=== PATIENT | male | born 1990 | race Caucasian/White ===

== ENCOUNTER 2017-12-24 16:39 | Emergency (ER) | payer OTHER ==
[~2017-12-24] VITALS: Ht 167.6 cm; Wt 83.0 kg
[2017-12-24 16:47] VITALS: Ht 167.6 cm; Wt 83.0 kg
[2017-12-24 17:19] VITALS: BP 164/78
== END 2017-12-24 17:19 | disposition home or self-care (01) ==
LOC: ED 16:39
DX: G44.209 Tension-type headache, unspecified, not intractable (principal); Z88.0 Allergy status to penicillin

== ENCOUNTER 2018-11-04 15:45 | Emergency (ER) | payer OTHER ==
[~2018-11-04] VITALS: Ht 167.6 cm; Wt 83.9 kg
[2018-11-04 15:56] VITALS: Ht 167.6 cm; Wt 83.9 kg
[2018-11-04 17:23] LABS: BASOPHIL % 0.4 % (0-2); PLATELET COUNT 387 x10^3mcL (130-400); RED CELL DISTRIBUTION WIDTH 13.7 % (11.5-14.5)
[2018-11-04 17:33] LABS: CALCIUM 8.3 mg/dL (8.5-10.1); CARBON DIOXIDE 25.5 mmol/L (21-32); CHLORIDE SERUM 104 mmol/L (98-107); CREATININE SERUM 0.8 mg/dL (0.7-1.3); GFR1 > 60 mL/min; GLUCOSE SERUM 93 mg/dL (74-106); POTASSIUM SERUM 3.9 mmol/L (3.5-5.1); SODIUM SERUM 141 mmol/L (136-145)
[2018-11-04 17:37] LABS: ALKALINE PHOSPHATASE 50 U/L (46-116); ALT/SGPT 138 U/L (16-63); AST/SGOT 65 U/L (15-37); BILIRUBIN TOTAL 0.3 mg/dL (0.20-1.00); TOTAL PROTEIN, SERUM 6.6 g/dL (6.4-8.2)
[2018-11-04 17:40] LABS: ALBUMIN 3.3 g/dL (3.4-5.0)
[2018-11-04 18:02] LABS: microscopic required? YES; urine erythrocyte 2+ (NEGATIVE)
[2018-11-04 18:12] LABS: AMPHETAMINE QUAL UR NONE DETECTED (See below)
[2018-11-04 18:51] VITALS: BP 138/94
== END 2018-11-04 18:51 | disposition home or self-care (01) ==
LOC: ED 15:45
PROVIDERS: Emergency Medicine
DX: R00.2 Palpitations (principal); F41.9 Anxiety disorder, unspecified; I10 Essential (primary) hypertension; R07.89 Other chest pain; R06.02 Shortness of breath; Z88.0 Allergy status to penicillin
CPT/HCPCS: 36415; J7030; Q0092

== ENCOUNTER 2019-09-16 17:01 | Emergency (ER) | payer OTHER ==
[~2019-09-16] VITALS: Ht 167.6 cm; Wt 77.1 kg
[2019-09-16 17:06] VITALS: Ht 167.6 cm; Wt 77.1 kg
[2019-09-16 18:24] LABS: BASOPHIL % 0.4 % (0-2); RED CELL DISTRIBUTION WIDTH 14.2 % (11.5-14.5)
[2019-09-16 18:25] LABS: PLATELET COUNT 430 x10^3mcL (130-400)
[2019-09-16 18:38] LABS: CALCIUM 8.5 mg/dL (8.5-10.1); CARBON DIOXIDE 20.7 mmol/L (21-32); CHLORIDE SERUM 105 mmol/L (98-107); CREATININE SERUM 0.9 mg/dL (0.7-1.3); GFR1 > 60 mL/min; GLUCOSE SERUM 99 mg/dL (74-106); POTASSIUM SERUM 3.1 mmol/L (3.5-5.1); SODIUM SERUM 142 mmol/L (136-145)
[2019-09-16 18:50] LABS: ALBUMIN 4.1 g/dL (3.4-5.0); ALKALINE PHOSPHATASE 66 U/L (46-116); ALT/SGPT 141 U/L (16-63); AST/SGOT 51 U/L (15-37); BILIRUBIN TOTAL 0.23 mg/dL (0.20-1.00)
[2019-09-16 18:51] LABS: TOTAL PROTEIN, SERUM 8.3 g/dL (6.4-8.2)
[2019-09-16 22:22] LABS: AMPHETAMINE QUAL UR NONE DETECTED (See below)
[2019-09-16 23:18] VITALS: BP 131/89
== END 2019-09-16 23:18 | disposition home or self-care (01) ==
LOC: ED 17:01
PROVIDERS: Emergency Medicine
DX: F10.129 Alcohol abuse with intoxication, unspecified (principal); E87.6 Hypokalemia; I10 Essential (primary) hypertension; Z88.0 Allergy status to penicillin
CPT/HCPCS: 36415; G0480; J1630; J2060